=== PATIENT | male | born 2000 | race Caucasian/White ===

== ENCOUNTER 2018-10-21 22:48 | Emergency (ER) | payer SELFPAY ==
[~2018-10-21] VITALS: Ht 200.7 cm; Wt 159.0 kg
[~2018-10-21 22:48] MED LIST: CIPROFLOXACN500 MG PO; MOTRIN800 MG PO; TRAMADOL HYDROC50 MG PO
[2018-10-21] MEDS ORDERED: AMOXICILLIN500 MG PO (23:10)
[2018-10-21] MEDS ORDERED: TRAMADOL HCL50 MG PO (23:10)
[2018-10-21] MEDS ORDERED: MOTRIN800 MG PO (23:10)
[2018-10-21 23:20] VITALS: BP 148/90
== END 2018-10-21 23:21 | disposition home or self-care (01) | DRG 159 ==
LOC: ED 22:48
DX: K04.7 Periapical abscess without sinus (principal); K02.9 Dental caries, unspecified; S02.5XXA Fracture of tooth (traumatic), initial encounter for closed fracture